=== PATIENT | female | born 1995 | race Caucasian/White ===

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

== ENCOUNTER 2018-04-03 14:57 | Emergency (ER) | payer OTHER ==
--- NOTE | 2018-04-03 15:42 | UC ---
Throat Pain/Nasal Julio HPI - HPI Summary HPI Summary: Started w/ sore throat x1 wk w/ some occasional ear pain. nothing makes it better/worse. - History of Current Complaint Chief Complaint: UCGeneralIllness Stated Complaint: THROAT PAIN Time Seen by Provider: 04/03/18 15:03 Hx Last Menstrual Period: 05/18/16 Pain Intensity: 6 Associated Signs & Symptoms: Positive: Negative - Epiglottits Risk Factors Epiglottis Risk Factors: Negative - Allergies/Home Medications Allergies/Adverse Reactions: Allergies Allergy/AdvReac Type Severity Reaction Status Date / Time No Known Allergies Allergy Verified 05/20/16 13:03 PMH/Surg Hx/FS Hx/Imm Hx Previously Healthy: Yes - Surgical History Surgical History: None - Family History Known Family History: Positive: Other - mom positive [facility] for mono - Social History Alcohol Use: None Substance Use Type: None Smoking Status (MU): Never Smoked Tobacco - Immunization History Vaccination Up to Date: Yes Review of Systems All Other Systems Reviewed And Are Negative: Yes Constitutional: Positive: Negative Skin: Positive: Negative ENT: Positive: Sore Throat, Ear Ache Respiratory: Positive: Negative Cardiovascular: Positive: Negative Neurological: Positive: Negative Physical Exam Triage Information Reviewed: Yes Appearance: Well-Appearing, Obese Vital Signs: Initial Vital Signs Temp 98.3 F 04/03/18 15:05 Pulse 125 04/03/18 15:05 Resp 18 04/03/18 15:05 BP 140/95 04/03/18 15:05 Pulse Ox 100 04/03/18 15:05 Vital Signs Reviewed: Yes ENT: Positive: Pharyngeal erythema, TMs normal, Tonsillar swelling, Uvula midline. Negative: Tonsillar exudate Respiratory Exam: Normal Cardiovascular Exam: Normal Neurological Exam: Normal Throat Pain/Nasal Course/Dx - Course Assessment/Plan: Acute viral pharyngitis for 1 wk. rapid strep neg. we did discuss her pulse and BP; recheck Pulse: 124. Her mother explained this was ' white coat' but given her body habitus should f/u w/ pcp. - Differential Dx/Diagnosis Differential Diagnosis/HQI/PQRI: Influenza, Pharyngitis, URI Provider Diagnosis: Elevated blood pressure reading, Pharyngitis Discharge - Sign-Out/Discharge Documenting (check all that apply): Patient Departure All imaging exams completed and their final reports reviewed: No Studies - Discharge Plan Condition: Good Disposition: HOME Patient Education Materials: Pharyngitis (ED), Hypertension (ED) Referrals: No Primary Care Phys,NOPCP [Primary Care Provider] - Additional Instructions: Please f/u w/ your primary care doctor for blood pressure. - Billing Disposition and Condition Condition: GOOD Disposition: Home
== END 2018-04-03 15:58 | disposition home or self-care (01) ==
LOC: UCEAST 14:57
DX: R03.0 Elevated blood-pressure reading, without diagnosis of hypertension (principal); J02.9 Acute pharyngitis, unspecified
CPT/HCPCS: 87651; 99211; G0463